=== PATIENT | male | born 1965 | race Caucasian/White ===

== ENCOUNTER 2017-01-29 19:33 | Emergency (ER) | payer OTHER ==
[2017-01-29] MEDS ORDERED: Diphtheria,Pertussis(Acell),Tetanus Vaccine 0.5 ML SDV IM ONE (20:19)
[2017-01-29] MEDS ORDERED: Lidocaine 1% 20 ML MDV INJECT ONE (20:20)
[2017-01-29] MEDS ORDERED: Lidocaine 1% 30 ML SDV INJECT STA (20:29)
[2017-01-29] MEDS ORDERED: Lidocaine 1% 50 ML MDV ONE (20:29)
[2017-01-29] MEDS ORDERED: Midazolam 1 MG/ML 5 ML SDV IVPUSH ONE ×2 (22:33→22:34)
[2017-01-29] MEDS ORDERED: Sodium Chloride 0.9% 10 ML Syringe FLUSH PRN (22:33)
[2017-01-29] MEDS ORDERED: fentaNYL 100 MCG/2 ML SDV IVPUSH ONE (22:33)
[2017-01-29] MEDS ORDERED: Bupivacaine 0.5% 10 ML SDV INJECT ONE (22:34)
[2017-01-29] MEDS ORDERED: Midazolam 1 MG/ML 2 ML SDV ONE ×2 (22:43→23:03)
--- NOTE | 2017-01-29 23:17 | EDM.PDOC ---
<Gino Thomas - Last Filed: 01/30/17 00:11> ED HPI GENERAL MEDICAL PROBLEM - General Chief Complaint: Laceration Stated Complaint: POSS THUMB INJURY Time Seen by Provider: 01/29/17 20:10 - Related Data Allergies Allergy/AdvReac Type Severity Reaction Status Date / Time cefaclor [From Ceclor] Allergy Anaphylactic Verified 01/29/17 19:49 Shock Home Meds: Home Meds Ascorbic Acid [Vitamin C] 1 tab PO DAILY 01/29/17 [History] Multivitamin [Multivitamins] 1 tab PO DAILY 01/29/17 [History] Acetaminophen/oxyCODONE [Percocet 325-5 MG] 1 tab PO Q6H PRN #15 tablet [Rx] Doxycycline [Vibramycin] 100 mg PO Q12HR #19 tablet 01/30/17 [Rx] ED SKIN PROCEDURES - Laceration/Wound Repair Right Distal Finger Lac/Wound length In cm: 2.0 (Removal of partial avulsed right thumbnail and repair of laceration ulnar aspect of thumb adjacent to the nail fold) Appearance: Subcutaneous, Clean Distal NVT: Neuro & Vascular Intact Anesthetic Type: Other (Conscious sedation utilizing fentanyl and Versed but also digital block performed using 0.5% Marcaine.) Local Anesthesia - Bupivicaine (Marcaine): 0.5% Plain Local Anesthetic Volume: Other Skin Prep: Chlorhexidine (Hibiciens) (7 mL in total) Exploration/Debridement/Repair: Wound Explored Suture Size: 4-0 # of Sutures: 5 Repaired with: Vicryl Course - Vital Signs Last Recorded V/S: Last Vital Signs Temp 36.6 C 01/29/17 19:45 Pulse 90 01/29/17 19:45 Resp 16 01/29/17 19:45 BP 161/103 H 01/29/17 19:45 Pulse Ox 99 01/29/17 19:45 - Orders/Labs/Meds Orders: Active Orders 24 hr Category Date Time Status Peripheral IV Care [RC] . DIRECTED Care 01/29/17 22:34 Active Vaccines to be Administered [RC] PER UNIT ROUTINE Care 01/29/17 20:20 Active Fingers Thumb Rt F5 [CR] Stat Exams 01/29/17 20:19 Taken Peripheral IV Insertion Adult [OM.PC] Routine Oth 01/29/17 22:33 Ordered Meds: Medications Discontinued Medications Generic Name Dose Route Start Last Admin Trade Name Miguel PRN Reason Stop Dose Admin Bupivacaine HCl 10 ml 01/29/17 22:34 01/29/17 23:00 Sensorcaine-Mpf 0.5% INJECT 01/29/17 22:35 10 ml ONETIME ONE Administration Diphtheria/Tetanus/Acell Pertussis 0.5 ml 01/29/17 20:19 01/29/17 20:30 Adacel IM 01/29/17 20:20 0.5 ml .ONCE ONE Administration Doxycycline Hyclate 100 mg 01/30/17 00:04 01/30/17 00:39 Vibramycin PO 01/30/17 00:05 100 mg ONETIME ONE Administration Fentanyl 100 mcg 01/29/17 22:33 01/29/17 23:00 Sublimaze IVPUSH 01/29/17 22:34 100 mcg ONETIME ONE Administration Lidocaine HCl Confirm 01/29/17 20:29 01/29/17 20:31 Xylocaine 1% Administered 01/29/17 20:30 50 ml Dose Administration 50 ml .ROUTE .STK-MED ONE Lidocaine HCl 50 ml 01/29/17 20:29 01/29/17 20:31 Xylocaine-Mpf 1% INJECT 01/29/17 20:30 Not Given ONETIME STA Midazolam HCl 5 mg 01/29/17 22:33 01/30/17 00:55 Versed 1 Mg/Ml IVPUSH 01/29/17 22:34 Not Given ONETIME ONE Midazolam HCl 5 mg 01/29/17 22:34 01/30/17 00:55 Versed 1 Mg/Ml IVPUSH 01/29/17 22:35 Not Given ONETIME ONE Midazolam HCl Confirm 01/29/17 22:43 01/30/17 00:55 Versed 1 Mg/Ml Administered 01/29/17 22:44 Not Given Dose 6 mg .ROUTE .STK-MED ONE Midazolam HCl Confirm 01/29/17 23:03 01/29/17 23:00 Versed 1 Mg/Ml Administered 01/29/17 23:04 5 mg Dose Administration 2 mg .ROUTE .STK-MED ONE Sodium Chloride 10 ml 01/29/17 22:33 01/30/17 00:54 Saline Flush FLUSH 10 ml ASDIRECTED PRN Administration Keep Vein Open Departure - Departure Disposition: Home, Self-Care 01 Clinical Impression: Nail avulsion, finger - Discharge Information Prescriptions: Doxycycline [Vibramycin] 100 mg PO Q12HR #19 tablet Acetaminophen/oxyCODONE [Percocet 325-5 MG] 1 tab PO Q6H PRN #15 tablet PRN Reason: Pain Instructions: Laceration Care, Adult, [id number] Referrals: PCP,Not In Area [Primary Care Provider] - Aakash Black MD [Physician] - Forms: ED Department Discharge Additional Instructions: Doxycycline 1 tab twice a day. your first dose was given in the ER. Start your prescription tomorrow. Percocet 1-2 tabs every 4-6 hours as needed for severe pain. Keep the wound covered. Apply antibiotic ointment to the wound twice a day. Wash with gentle soap and water twice a day. Follow-up with Dr. Black at [facility] in 1-2 weeks for recheck. Call [phone] Black. May work with restrictions. Keep the thumb covered. May not work on pain medication. Please return to the ER if your symptoms change or worsen. - My Orders Last 24 Hours: My Active Orders 01/29/17 20:19 Fingers Thumb Rt F5 [CR] Stat 01/29/17 20:20 Vaccines to be Administered [RC] PER UNIT ROUTINE 01/29/17 22:33 Peripheral IV Insertion Adult [OM.PC] Routine 01/29/17 22:34 Peripheral IV Care [RC] . DIRECTED - Assessment/Plan Last 24 Hours: My Active Orders 01/29/17 20:19 Fingers Thumb Rt F5 [CR] Stat 01/29/17 20:20 Vaccines to be Administered [RC] PER UNIT ROUTINE 01/29/17 22:33 Peripheral IV Insertion Adult [OM.PC] Routine 01/29/17 22:34 Peripheral IV Care [RC] . DIRECTED ED PROCEDURAL SEDATION - Pre Procedure Indications: laceration repair, other (Removal of right partially avulsed thumbnail) Preparations: procedure explained, consent signed, RT in room, oxygen, continuous pulse oximeter, suction, continuous cardiac sonographer, constant attendance - Physical Exam Airway: normal anatomy Cardiovascular: normal heart sounds Respiratory: normal breath sounds Neurological: alert, responsive, NAD, moderate distress Meilampati Classification: 1 (soft palate, anterior/posterior tonsillar pillars , uvula visible) - Procedure Sedation Sedation: versed (parenteral) (5 mg in total mg), fentanyl (100 g in total.) ASA Classification: 1 (Normal healthy patient) - Intra Procedure Condition during procedure: moderately sedated, oxygenation stable, maintained airway well, handled secretions adequately Complications: none - Post Procedure Condition after procedure: alert, NAD, responds to verbal stimuli - Discharge Condition Patient returned to pre-procedure baseline: Yes <Maris Monsivais - Last Filed: 01/30/17 12:43> ED HPI GENERAL MEDICAL PROBLEM - General Source of Information: Reports: Patient History Limitations: Reports: No Limitations - History of Present Illness INITIAL COMMENTS - FREE TEXT/NARRATIVE: 51-year-old male presents for evaluation and treatment of injury to the left thumb. Reportedly the injury occurred at work. Patient was attempting to stop a door when the wind got a hold of the door. States his thumb got caught in the door. This was opposite of the hinge side. Reports immediate pain and partial avulsion of the left thumbnail. Reports good sensation and no decreased ROM. Patient is right-handed. Unsure of last tetanus. Onset: Today Location: Reports: Upper Extremity, Right Quality: Reports: Throbbing Right 1-Thumb Pain Score (Numeric/FACES): 10 Past Medical History - Past Health History Medical/Surgical History: Denies Medical/Surgical History Social & Family History - Tobacco Use Smoking Status *Q: Never Smoker Second Hand Smoke Exposure: No - Caffeine Use Caffeine Use: Reports: Coffee - Recreational Drug Use Recreational Drug Use: No ED ROS GENERAL - Review of Systems Review Of Systems: See Below Musculoskeletal: Reports: Hand Pain (right thumb) Skin: Reports: Wound (right thumb nail partial avulsion) Neurological: Denies: Numbness, Tingling ED EXAM, SKIN/RASH Exam: See Below Exam Limited By: No Limitations General Appearance: Alert, WD/WN, No Apparent Distress, Anxious Eye Exam: Bilateral Eye: Normal Inspection Ears: Normal External Exam Respiratory/Chest: No Respiratory Distress Cardiovascular: Normal Peripheral Pulses, Regular Rate, Rhythm, No Murmur Peripheral Pulses: 2+: Radial (R) Extremities: Other (right thumb nail is partially avulsed with the proximal end avulsed and the distal end still attached) Neurological: Alert, Oriented, Normal Cognition Psychiatric: Normal Affect, Normal Mood Skin: Warm, Dry, Normal Color Location, Skin: Upper Extremity, Right Course - Radiology Interpretation Free Text/Narrative:: xray of the right thumb reviewed by myself and Dr. Thomas. No acute fractures or dislocations. - Re-Assessments/Exams Free Text/Narrative Re-Assessment/Exam: 01/29/17 22:36 I reviewed the x-ray results with the patient. Attempted to preform a digital block. 6 mL of lidocaine was injected into the right thumb. Patient could not tolerate the nail removal despite the digital block. I asked Dr. Thomas for assistance. He came and evaluated the patient. Decided to give conscious sedation with fentanyl and Versed. Departure - Departure Time of Disposition: 00:45 Condition: Good
[2017-01-30] MEDS ORDERED: Doxycycline 100 MG Cap PO ONE (00:04)
--- NOTE | 2017-01-31 06:53 | CR ---
Left thumb: Four views of the left thumb were obtained. Soft tissue air is noted distally. No fracture, dislocation or other bony abnormality is seen. Impression: 1. Soft tissue air. 2. No bony abnormality is seen on left thumb study. Diagnostic code #3 MTDD
== END 2017-01-30 01:00 | disposition home or self-care (01) ==
LOC: JD.ED 19:33
DX: S61.111A Laceration without foreign body of right thumb with damage to nail, initial encounter (principal); Z23 Encounter for immunization; W23.0XXA Caught, crushed, jammed, or pinched between moving objects, initial encounter; Y99.0 Civilian activity done for income or pay
CPT/HCPCS: 11760; 73140; 90471; 90715; 96374; 96375; 99152; 99153; 99284; A9270; J2250; J3010; J7050